=== PATIENT | female | born 1930 | race Two or more races ===

== ENCOUNTER 2017-01-18 13:30 | Inpatient (IN) | payer OTHER ==
[~2017-01-18] VITALS: Ht 152.4 cm; Wt 35.8 kg
[~2017-01-18 13:30] MED LIST: ARICEPT10 MG PO; ARICEPT5 MG; CIPRO500 MG PO; COL100 PO; DONEPEZIL HCL5 MG PO; GLIPIZIDE10 MG PO; GLIPIZIDE2.5 M1; GLIPIZIDE2.5 M1 PO; GUAIFENESIN AN118 ML PO; LAC PO; LEV500 PO; METFORMIN HCL1000 MG; METFORMIN HCL1000 MG PO; METFORMIN HCL500 MG; METFORMIN500 M1 PO; METP PO; MYL80 CH; PREDNISONE2.5 MG PO; PROAIR HFA0.09 MG/A1; PROAIR HFA0.09 MG/A1 INH; PROSUD INH; QVAR0.04 MG/Ac; QVAR0.04 MG/Ac IH; RESTORIL15 MG PO; TEMAZEPAM PO; [UNRECOGNIZED DRUG - OTHER]; [UNRECOGNIZED DRUG - OTHER] PO
[2017-01-18 15:30] LABS: BASOPHIL % 0.4 % (0-2); PLATELET COUNT 246 x10^3mcL (130-400)
[2017-01-18 16:05] LABS: microscopic required? YES
[2017-01-18 16:06] LABS: urine erythrocyte NEGATIVE (NEGATIVE)
[2017-01-18 16:11] LABS: CALCIUM 9.5 mg/dL (8.5-10.1); CARBON DIOXIDE 28.7 mmol/L (21-32); CHLORIDE SERUM 99 mmol/L (98-107); CREATININE SERUM 0.7 mg/dL (0.6-1.0); GLUCOSE SERUM 202 mg/dL (74-106); POTASSIUM SERUM 3.9 mmol/L (3.5-5.1); SODIUM SERUM 137 mmol/L (136-145)
[2017-01-18 16:17] LABS: ALKALINE PHOSPHATASE 81 U/L (46-116); ALT/SGPT 14 U/L (14-59); AST/SGOT 19 U/L (15-37); BILIRUBIN TOTAL 0.57 mg/dL (0.20-1.00); TOTAL PROTEIN, SERUM 6.8 g/dL (6.4-8.2)
[2017-01-18 17:50] LABS: acanthocyte (spur cell) 1+; rbc morphology (normal/abnorm) ABNORMAL (NORMAL)
[2017-01-18 18:12] VITALS: BP 142/55
[2017-01-18 18:15] VITALS: BP 142/55
[2017-01-18 18:23] VITALS: Ht 152.4 cm; Wt 35.8 kg
[2017-01-18] MEDS ORDERED: HYDROXYZINE HYD25 MG PO (18:46)
[2017-01-18] MEDS ORDERED: SENNA8.6 MG PO (18:47)
[2017-01-18] MEDS ORDERED: MORPHINE SULFAT15 M7 PO (18:47)
[2017-01-18] MEDS ORDERED: LORAZEPAM0.5 MG PO (18:47)
[2017-01-18] MEDS ORDERED: LACTULOSE10 GM/152 PO (18:48)
[2017-01-18 21:46] VITALS: BP 145/75
[2017-01-18 22:32] LABS: MAGNESIUM 1.5 mg/dL (1.8-2.4); PHOSPHOROUS 3.6 mg/dL (2.5-4.9)
[2017-01-18 22:33] LABS: CHOLESTEROL/HDL RATIO 2.4
[2017-01-18 23:33] LABS: FREE T4 1.47 ng/dL (0.76-1.46); FREE THYROXINE INDEX 3.7 ug/dL (1.4-4.5); T4(THYROXINE) 10.6 ug/dL (4.7-13.3)
[2017-01-19 05:42] VITALS: BP 152/72
[2017-01-19 07:18] LABS: BASOPHIL % 0.2 % (0-2); PLATELET COUNT 240 x10^3mcL (130-400); RED CELL DISTRIBUTION WIDTH 20.7 % (11.5-14.5)
[2017-01-19 07:21] LABS: rbc morphology (normal/abnorm) ABNORMAL (NORMAL)
[2017-01-19 08:19] LABS: CARBON DIOXIDE 23.4 mmol/L (21-32); CHLORIDE SERUM 100 mmol/L (98-107); GLUCOSE SERUM 205 mg/dL (74-106); POTASSIUM SERUM 3.8 mmol/L (3.5-5.1); SODIUM SERUM 134 mmol/L (136-145)
[2017-01-19 08:20] LABS: CALCIUM 9.5 mg/dL (8.5-10.1); CREATININE SERUM 0.7 mg/dL (0.6-1.0)
[2017-01-19 08:40] LABS: T3 TOTAL 1.04 ng/mL
[2017-01-19 10:00] VITALS: BP 122/62
[2017-01-19 14:35] VITALS: BP 129/64
[2017-01-19 20:52] VITALS: BP 154/91
[2017-01-20 05:10] VITALS: BP 148/95
[2017-01-20 06:41] LABS: BASOPHIL % 0.6 % (0-2); PLATELET COUNT 221 x10^3mcL (130-400)
[2017-01-20 06:53] LABS: CARBON DIOXIDE 24.3 mmol/L (21-32); CHLORIDE SERUM 103 mmol/L (98-107); CREATININE SERUM 0.6 mg/dL (0.6-1.0); GLUCOSE SERUM 187 mg/dL (74-106); MAGNESIUM 1.5 mg/dL (1.8-2.4); POTASSIUM SERUM 3.1 mmol/L (3.5-5.1); SODIUM SERUM 138 mmol/L (136-145)
[2017-01-20 06:55] LABS: RED CELL DISTRIBUTION WIDTH 21.2 % (11.5-14.5)
[2017-01-20 06:56] LABS: rbc morphology (normal/abnorm) ABNORMAL (NORMAL)
[2017-01-20 08:40] VITALS: BP 166/86
[2017-01-20 12:30] VITALS: BP 129/66
[2017-01-20 16:40] VITALS: BP 98/79
[2017-01-20 20:49] VITALS: BP 123/65
[2017-01-21 05:33] VITALS: BP 126/61
[2017-01-21 06:56] LABS: CALCIUM 8.3 mg/dL (8.5-10.1); CARBON DIOXIDE 26.4 mmol/L (21-32); CHLORIDE SERUM 107 mmol/L (98-107); CREATININE SERUM 0.6 mg/dL (0.6-1.0); GLUCOSE SERUM 235 mg/dL (74-106); MAGNESIUM 1.9 mg/dL (1.8-2.4); POTASSIUM SERUM 3.9 mmol/L (3.5-5.1); SODIUM SERUM 138 mmol/L (136-145)
[2017-01-21 07:20] LABS: BASOPHIL % 0.4 % (0-2); PLATELET COUNT 196 x10^3mcL (130-400)
[2017-01-21 07:23] LABS: RED CELL DISTRIBUTION WIDTH 21.6 % (11.5-14.5)
[2017-01-21 07:24] LABS: rbc morphology (normal/abnorm) ABNORMAL (NORMAL)
[2017-01-21 09:26] VITALS: BP 138/68
[2017-01-21 15:14] VITALS: BP 120/59
[2017-01-21 17:36] VITALS: BP 122/57
[2017-01-21 21:53] VITALS: BP 122/102
[2017-01-22 06:49] LABS: BASOPHIL % 0.5 % (0-2); PLATELET COUNT 235 x10^3mcL (130-400)
[2017-01-22 06:51] LABS: RED CELL DISTRIBUTION WIDTH 21.2 % (11.5-14.5)
[2017-01-22 06:52] LABS: rbc morphology (normal/abnorm) ABNORMAL (NORMAL)
[2017-01-22 06:59] LABS: CALCIUM 8.1 mg/dL (8.5-10.1); CARBON DIOXIDE 26.3 mmol/L (21-32); CHLORIDE SERUM 106 mmol/L (98-107); CREATININE SERUM 0.7 mg/dL (0.6-1.0); GLUCOSE SERUM 154 mg/dL (74-106); MAGNESIUM 1.3 mg/dL (1.8-2.4); PHOSPHOROUS 1.8 mg/dL (2.5-4.9); POTASSIUM SERUM 3.5 mmol/L (3.5-5.1); SODIUM SERUM 139 mmol/L (136-145)
[2017-01-22 09:23] VITALS: BP 130/61
[2017-01-22 17:29] VITALS: BP 125/74
[2017-01-22 19:31] VITALS: BP 125/74
[2017-01-22] MEDS ORDERED: BD LACTINEX1.4 MG PO (19:32)
[2017-01-22] MEDS ORDERED: SULFAMETHOXAZOL1 TA3 PO (19:35)
== END 2017-01-22 20:17 | disposition home or self-care (01) | DRG 480 ==
LOC: ED 13:30 → DU 16:48 → MU 01-21 09:10
PROVIDERS: Emergency Medicine; Neuromusculoskeletal Medicine, Sports Medicine; ADMIT Family Medicine
PROC: 0QS704Z Reposition Left Upper Femur with Internal Fixation Device, Open Approach (ICD-10-PCS; principal; 2017-01-20 09:30)
DX: S72.142A Displaced intertrochanteric fracture of left femur, initial encounter for closed fracture (principal); N17.0 Acute kidney failure with tubular necrosis; R64 Cachexia; Z68.1 Body mass index [BMI] 19.9 or less, adult; C56.2 Malignant neoplasm of left ovary; D62 Acute posthemorrhagic anemia; E87.1 Hypo-osmolality and hyponatremia; E44.1 Mild protein-calorie malnutrition; N39.0 Urinary tract infection, site not specified; E11.65 Type 2 diabetes mellitus with hyperglycemia; E83.42 Hypomagnesemia; J84.10 Pulmonary fibrosis, unspecified; Z66 Do not resuscitate; Z79.84 Long term (current) use of oral hypoglycemic drugs; W06.XXXA Fall from bed, initial encounter; Y92.003 Bedroom of unspecified non-institutional (private) residence as the place of occurrence of the external cause
CPT/HCPCS: 82962; 83880; 84439; 97110-GP; 97116-GP; 97530-GP; C1713; J0690; J0696; J1644; J1885; J2270; J2405; J2704; J3010; J3475; J3480; J3490; J7030